=== PATIENT | female | born 1965 | race African-American/Black ===

== ENCOUNTER 2021-05-03 02:07 | Inpatient (IN) ==
[2021-05-03] MEDS ORDERED: methylPREDNISolone SOD SUC 125 MG/2 ML VIAL IV STA (02:30)
[2021-05-03] MEDS ORDERED: NOREPINEPHRINE 16 MG in SODIUM CHLORIDE 0.9% 234 ML IV PRN (02:30)
[2021-05-03] MEDS ORDERED: ALBUTEROL NEB SOLN 5 MG/ML 20 ML/BOTTLE CONT NEB SCH (02:30)
[2021-05-03] MEDS ORDERED: ONDANSETRON 4 MG/2 ML VIAL IV STA (02:30)
[2021-05-03] MEDS ORDERED: SODIUM CHLORIDE 0.9% 500 ML IV STA (02:30)
[2021-05-03] MEDS ORDERED: NOREPINEPHRINE 8 MG in SODIUM CHLORIDE 0.9% 242 ML IV PRN (02:35)
[2021-05-03] MEDS ORDERED: ALBUTEROL/IPRATROPIUM 3 ML NEB RESP TX ONE (03:00)
[2021-05-03] MEDS ORDERED: ALBUTEROL/IPRATROPIUM 3 ML NEB RESP TX STA (03:28)
[2021-05-03] MEDS ORDERED: fentaNYL 100 MCG/2 ML VIAL IV STA (03:33)
[2021-05-03] MEDS ORDERED: MORPHINE 2 MG/1 ML SYRINGE IV PRN (03:57)
[2021-05-03] MEDS ORDERED: LORazepam 2 MG/1 ML VIAL IV PRN (03:57)
[2021-05-03] MEDS ORDERED: SODIUM CHLORIDE 0.9% 1,000 ML IV SCH (06:30)
[2021-05-03 08:08] VITALS: BP 62/15
== END 2021-05-03 09:34 | disposition expired | DRG 951 ==
LOC: EDUNIT# → EDBD → N.ED 02:07 → N.5E 03:54
PROVIDERS: ADMIT Internal Medicine Geriatric Medicine; ATTEND Internal Medicine Geriatric Medicine